=== PATIENT | female | born 2000 | race Caucasian/White ===

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

== ENCOUNTER 2021-07-28 23:13 | Emergency (ER) | payer MEDICAID ==
--- NOTE | 2021-07-28 23:47 | EDM.PDOC ---
ED HPI GENERAL MEDICAL PROBLEM - General Chief Complaint: ENT Problem Stated Complaint: bleeding post tonsilectomy Time Seen by Provider: 07/28/21 23:15 Source of Information: Reports: Patient History Limitations: Reports: No Limitations - History of Present Illness INITIAL COMMENTS - FREE TEXT/NARRATIVE: patient presented to the ER with a c/o bleeding from tonsillectomy site. patient is 6 days post-op tonsillectomy. Reports that she has been bleeding from her site yesterday, and went to another ER where she was managed with oral solution. Denies coughing hard or sneezing, also denies eating solid food, but has been drinking fluids only. No SOB. no fever. 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, P2 Psychiatric History: Reports: Anxiety Social & Family History - Family History Family Medical History: No Pertinent Family History - Caffeine Use Caffeine Use: Reports: Coffee, Energy Drinks, Soda ED ROS ENT - Review of Systems Review Of Systems: See Below Constitutional: Reports: No Symptoms Respiratory: Reports: No Symptoms Cardiovascular: Reports: No Symptoms GI/Abdominal: Reports: No Symptoms Musculoskeletal: Reports: No Symptoms Neurological: Reports: No Symptoms ED EXAM, ENT - Physical Exam Exam: See Below Exam Limited By: No Limitations General Appearance: Alert, WD/WN, No Apparent Distress Eye Exam: Bilateral Eye: EOMI Mouth/Throat: Other (blood clot over the left tonsilectomy site. slow oozing was observed ) Neck: Normal Inspection Respiratory/Chest: No Respiratory Distress Cardiovascular: Normal Peripheral Pulses GI/Abdominal: Normal Bowel Sounds Neurological: Alert, Oriented, No Motor/Sensory Deficits Course - Re-Assessments/Exams Free Text/Narrative Re-Assessment/Exam: vitals WNL using a suction - the clot was cleared out, and a silver nitrites was used to Chemically cauterize the bleeding site. Patient tolerated well and bleeding stopped. Departure - Departure Time of Disposition: 23:46 Disposition: Home, Self-Care 01 Condition: Good Clinical Impression: Primary post tonsillectomy hemorrhage - Discharge Information *PRESCRIPTION DRUG MONITORING PROGRAM REVIEWED*: Not Applicable *COPY OF PRESCRIPTION DRUG MONITORING REPORT IN PATIENT CHARI: Not Applicable - Problem List & Annotations (1) Primary post tonsillectomy hemorrhage SNOMED Code(s): 273552982 Code(s): J95.830 - POSTPROC HEMOR OF A RESP SYS ORG FOL A RESP SYS PROCEDURE Status: Acute Priority: Low - Problem List Review Problem List Initiated/Reviewed/Updated: Yes - Assessment/Plan Plan: - contact your ENT office/clinic tonight or tomorrow and ask for an urgent appointment in the clinic - you can also visit the ER in [place] and ask to be evaluated by the ENT if needed - avoid any aggressive coughing or clearing the mouth - follow a clear liquid diet and a soft diet - avoid regular diet for now - return to the ER if any concerns
[2021-07-29 03:37] VITALS: BP 121/67; PULSE 86
== END 2021-07-28 23:54 | disposition home or self-care (01) ==
LOC: LB.ED 23:13
DX: J95.831 Postprocedural hemorrhage of a respiratory system organ or structure following other procedure (principal); Z90.89 Acquired absence of other organs
CPT/HCPCS: 99283

== ENCOUNTER 2022-08-23 16:00 | Emergency (ER) | payer MEDICAID ==
[2022-08-23 16:09] VITALS: BP 130/75; PULSE 86
== END 2022-08-23 16:20 | disposition home or self-care (01) ==
LOC: LB.ED 16:00
DX: T85.898A Other specified complication of other internal prosthetic devices, implants and grafts, initial encounter (principal)
CPT/HCPCS: 99283

== ENCOUNTER 2022-12-24 15:31 | Emergency (ER) | payer MEDICAID ==
[2022-12-24 15:34] VITALS: BP 128/79; PULSE 85
[2022-12-24] MEDS ORDERED: Ketorolac 60 MG/2 ML SDV IM ONE (15:37)
[2022-12-24] MEDS ORDERED: Acetaminophen/HYDROcodone 325-5 MG Tab ONE (16:00)
== END 2022-12-24 16:13 | disposition home or self-care (01) ==
LOC: LB.ED 15:31 → SUPCPDRO 15:31 → LB.ED 16:13
DX: S80.01XA Contusion of right knee, initial encounter (principal); V86.92XA Unspecified occupant of snowmobile injured in nontraffic accident, initial encounter
CPT/HCPCS: 73562; 96372; 99283; A9270; J1885

== ENCOUNTER 2023-12-08 11:38 | Emergency (ER) | payer SELFPAY ==
[2023-12-08 11:57] VITALS: BP 146/86; PULSE 101
[2023-12-08 12:41] LABS: BASOPHILS ABSOLUTE AUTO 0.02 K/uL (0.02-0.10); BASOPHILS PERCENT AUTO 0.3 % (0.0-0.5); EOSINOPHILS ABSOLUTE AUTO 0.16 K/uL (0.04-0.40); EOSINOPHILS PERCENT AUTO 2.2 % (1.0-5.0); HEMATOCRIT 31.3 % (37.0-47.0); HEMOGLOBIN 9.2 g/dL (11.5-16.5); LYMPHOCYTES ABSOLUTE AUTO 1.26 K/uL (1.50-4.00); MEAN CORPUSCULAR HEMOGLOBIN 30.3 pg (27.0-32.0); MEAN CORPUSCULAR HGB CONC 29.4 g/dL (31.0-35.0); MEAN CORPUSCULAR VOLUME 103 fL (76-96); MEAN PLATELET VOLUME 10.8 fL (6.0-10.0); MONOCYTES ABSOLUTE AUTO 0.72 K/uL (0.20-0.80); MONOCYTES PERCENT AUTO 9.7 % (3.0-10.0); NEUTROPHILS ABSOLUTE AUTO 5.26 K/uL (2.00-7.50); NEUTROPHILS PERCENT AUTO 70.8 % (45.0-70.0); PLATELET COUNT,PLT 343 K/uL (150-500); RED BLOOD CELL COUNT 3.04 M/uL (3.80-5.80); RED CELL DISTRIBUTION WIDTH 13.6 % (11.0-16.0); WHITE BLOOD CELL COUNT,WBC 7.4 K/uL (4.0-11.0)
[2023-12-08 12:59] LABS: ALBUMIN 3.5 g/dL (3.4-5.0); ANION GAP 13.9 mmol/L (5.0-15.0); BILIRUBIN TOTAL 0.8 mg/dL (0.0-1.0); BUN/CREATININE RATIO 17.9 (6-25); CALCIUM 8.7 mg/dL (8.5-10.1); CARBON DIOXIDE,CO2 25.8 mmol/L (21.0-32.0); CREATININE 0.67 mg/dL (0.55-1.02); EST CRCL DRUG DOSING (CG) 118.51 mL/min; POTASSIUM,K 3.7 mmol/L (3.5-5.1)
[2023-12-08] MEDS ORDERED: Iopamidol 612 MG/ML 100 ML Bottle IV SCH (13:00)
[2023-12-08] MEDS: Ketorolac 60 MG/2 ML SDV IM SCH (13:31)
[2023-12-08] MEDS: Ketorolac 60 MG/2 ML SDV ONE (13:32)
[2023-12-11] MEDS: Sodium Chloride 0.9% 50 ML SDV FLUSH ONE (10:06)
[2023-12-11] MEDS: Ketorolac 60 MG/2 ML SDV IVPUSH ONE (10:06)
== END 2023-12-08 16:45 ==
LOC: LB.ED 11:38
DX: K91.840 Postprocedural hemorrhage of a digestive system organ or structure following a digestive system procedure (principal); D3A.8 Other benign neuroendocrine tumors; Z90.49 Acquired absence of other specified parts of digestive tract; E66.9 Obesity, unspecified; Z68.41 Body mass index [BMI] 40.0-44.9, adult; Z79.899 Other long term (current) drug therapy
CPT/HCPCS: 36415; 74176; 80053; 85018; 85025; 96372; 99285; J1885

== ENCOUNTER 2024-10-09 07:56 | Emergency (ER) | payer MEDICAID ==
[2024-10-09] MEDS: Acetaminophen 325 MG Tab PO ONE (08:18)
[2024-10-09 09:05] LABS: INFLUENZA A NAA NEGATIVE (NEGATIVE); INFLUENZA B NAA NEGATIVE (NEGATIVE); RESPIRATORY SYNCYTIAL VIR NAA NEGATIVE (NEGATIVE)
[2024-10-09 09:08] LABS: CORONAVIRUS COVID-19 NAA NEGATIVE (NEGATIVE)
[2024-10-09 09:34] VITALS: BP 137/71; PULSE 63
== END 2024-10-09 09:17 | disposition home or self-care (01) ==
LOC: LB.ED 07:56
DX: O99.512 Diseases of the respiratory system complicating pregnancy, second trimester (principal); J02.9 Acute pharyngitis, unspecified; E66.9 Obesity, unspecified; Z68.39 Body mass index [BMI] 39.0-39.9, adult; Z90.49 Acquired absence of other specified parts of digestive tract; Z3A.23 23 weeks gestation of pregnancy
CPT/HCPCS: 0241U; 87651-QW; 99284; A9270-GY

== ENCOUNTER 2024-12-14 19:18 | Emergency (ER) | payer MEDICAID ==
[2024-12-14] MEDS: diphenhydrAMINE 50 MG/ML SDV IM ONE (20:12)
[2024-12-14] MEDS: Metoclopramide 10 MG/2 ML SDV IVPUSH ONE (20:27)
[2024-12-14] MEDS: diphenhydrAMINE 50 MG/ML SDV IVPUSH ONE ×2 (20:29→21:32)
[2024-12-14] MEDS ORDERED: Sodium Chloride 0.9% 10 ML Syringe FLUSH PRN (20:33)
[2024-12-14] MEDS: Prochlorperazine 10 MG/2 ML SDV IVPUSH ONE (21:35)
[2024-12-14] MEDS: Acetaminophen 500 MG Tab PO ONE (21:38)
[2024-12-14 21:56] VITALS: BP 110/53; PULSE 64
[2024-12-16] MEDS: Metoclopramide 10 MG/2 ML SDV IM ONE (10:16)
[2024-12-16] MEDS: diphenhydrAMINE 50 MG/ML SDV IM ONE (10:17)
== END 2024-12-14 21:50 | disposition home or self-care (01) ==
LOC: LB.ED 19:18
DX: O99.891 Other specified diseases and conditions complicating pregnancy (principal); R51.9 Headache, unspecified; Z3A.01 Less than 8 weeks gestation of pregnancy; Z90.49 Acquired absence of other specified parts of digestive tract
CPT/HCPCS: 96374; 96375; 96376; 99283; A9270; J0780; J1200; J2765